=== PATIENT | male | born 1950 | race Caucasian/White ===

== ENCOUNTER → 2016-06-14 | Outpatient (CLI) | payer OTHER, MEDICARE ==
[~2016-06-14] MED LIST: ASCO10003 PO; ASPI81TA28 PO; ATOR-22 PO; LISI-461 PO; MULT-506 PO
--- NOTE | 2016-06-16 11:27 | CODING QUERY NO DIAGNOSIS ---
TREATMENT RENDERED WITHOUT A DIAGNOSIS 52 To promote full compliance with coding requirements relating to patient care, physician participation is requested in all cases of welcome wagon hostess uncertainty. Please assist us with providing a diagnosis/symptom for the test(s) below: A diagnosis/symptom was not documented on your Order. A valid diagnosis/symptom is required to bill all insurances. Please remember that we are unable to code a diagnosis of rule out, probable, possible, questionable, or suspected. DOS 06/14/16 Tests that require a diagnosis: * PROSTATE PATH DIAGNOSIS: Provider Signature: Date: Thank you Angeline Huntley [employer] Once completed, please kindly fax back to [phone] For questions please call [phone]
== END | disposition home or self-care (01) ==
LOC: C.PATHSPEC 17:20
PROVIDERS: ATTEND Urology
DX: R97.20 Elevated prostate specific antigen [PSA] (principal)